=== PATIENT | female | born 1965 | race Caucasian/White ===

== ENCOUNTER → 2018-11-29 | Outpatient (CLI) | payer MEDICARE, MEDICAID ==
[~2018-11-29] MED LIST: BUPIVACAINE MPF 0.25% 10 ML VIAL. ONE; methylPREDNISolone ACETATE 40 MG/ML VIAL. ONE
== END | disposition home or self-care (01) ==
LOC: SURG 10:40
PROVIDERS: ATTEND Anesthesiology Pain Medicine
DX: M79.18 Myalgia, other site (principal); J44.9 Chronic obstructive pulmonary disease, unspecified; M47.22 Other spondylosis with radiculopathy, cervical region; Z88.6 Allergy status to analgesic agent; Z87.01 Personal history of pneumonia (recurrent); M19.90 Unspecified osteoarthritis, unspecified site; Z98.890 Other specified postprocedural states; Z79.899 Other long term (current) drug therapy
CPT/HCPCS: 20553; J1030; J3490